=== PATIENT | female | born 1940 | race Caucasian/White ===

== ENCOUNTER 2024-06-26 23:27 | Emergency (ER) | payer MEDICARE, BC ==
[~2024-06-26] VITALS: Ht 160 cm; Wt 70.5 kg
[2024-06-26 23:37] VITALS: TEMP 98.2
[2024-06-27 00:15] VITALS: BP 178/76; PULSE 65; RESP 15; O2SAT 94
[2024-06-27] MEDS: ibuprofen tablet 400 MG TABLET PO ONE (00:35)
[2024-06-27] MEDS: acetaminophen 325mg tablet PO ONE (00:35)
== END 2024-06-27 01:16 | disposition home or self-care (01) ==
LOC: ER 23:28
DX: S90.31XA Contusion of right foot, initial encounter (principal); M85.871 Other specified disorders of bone density and structure, right ankle and foot; W18.39XA Other fall on same level, initial encounter; Y93.89 Activity, other specified; Y92.89 Other specified places as the place of occurrence of the external cause; Y99.8 Other external cause status
CPT/HCPCS: 73620; 99283; A6449

== ENCOUNTER 2024-07-21 19:19 | Emergency (ER) | payer MEDICARE, BC ==
[~2024-07-21] VITALS: Ht 160 cm; Wt 85.0 kg
[~2024-07-21 19:19] MED LIST: NO HOME MEDS
[2024-07-21 19:33] VITALS: BP 164/144; TEMP 98.2; O2SAT 97
[2024-07-21] MEDS ORDERED: [UNRECOGNIZED DRUG - CODE] PO (20:18)
[2024-07-21] MEDS ORDERED: CHOL100053 PO (20:23)
[2024-07-21] MEDS ORDERED: LISI20TA28 PO (20:23)
[2024-07-21] MEDS ORDERED: BETA300T PO (20:23)
[2024-07-21] MEDS ORDERED: AMLO-140 PO (20:25)
[2024-07-21] MEDS ORDERED: ATOR20TA PO (20:25)
[2024-07-21 21:17] VITALS: PULSE 72; RESP 18
== END 2024-07-21 21:43 | disposition home or self-care (01) ==
LOC: ER 19:21
DX: M79.604 Pain in right leg (principal); M25.561 Pain in right knee; G89.29 Other chronic pain; M79.7 Fibromyalgia; Z88.0 Allergy status to penicillin; Z88.2 Allergy status to sulfonamides; Z79.899 Other long term (current) drug therapy; Z86.718 Personal history of other venous thrombosis and embolism
CPT/HCPCS: 93970; 99284

== ENCOUNTER 2024-10-09 15:23 | Inpatient (IN) | payer MEDICARE, BC ==
[2024-10-09] VITALS (7 sets, daily range): BP systolic 121; BP diastolic 77; PULSE 60–109; RESP 23–30; TEMP 97.3; O2SAT 85–97
[~2024-10-09] VITALS: Ht 167.6 cm; Wt 72.0 kg
[~2024-10-09 15:23] MED LIST changes: +AMLO-140 PO; +ATOR20TA PO; +BETA300T PO; +CHOL100053 PO; +[UNRECOGNIZED DRUG - CODE] PO
[2024-10-09 16:18] LABS: CLARITY,URINE TURBID (Clear); COLOR,URINE RED (Yellow); UA COLLECTION TYPE FOLEY CATH
[2024-10-09 16:18] LABS: BASOPHILS % (AUTO) 0.1 % (0-1); EOSINOPHILS % (AUTO) 0 % (0-6); HEMATOCRIT 46.1 % (35.0-45.0); LYMPHOCYTES # (AUTO) 0.9 X10'3 (1.1-4.8); MEAN CORPUSCULAR HGB CONC 32.6 g/dL (33.0-36.5); MEAN CORPUSCULAR VOLUME 92.2 FL (78-98); MEAN PLATELET VOLUME 10.8 FL (7.4-10.4); MONOCYTES # (AUTO) 1.7 X10'3 (0-0.9); MONOCYTES % (AUTO) 7.9 % (2-12); NEUTROPHILS # (AUTO) 19.4 X10'3 (1.8-7.7); PLATELET COUNT 286 X10'3 (140-440); RED CELL DISTRIBUTION WIDTH 14.3 % (11.5-14.5)
[2024-10-09 16:26] LABS: APTT 23 SECONDS (22-32); PROTHROMBIN TIME 10.9 SECONDS (9.0-12.0)
[2024-10-09 16:29] LABS: RBC,URINE TNTC /HPF (0-2); WBC,URINE NONE SEEN /HPF (0-4)
[2024-10-09 16:30] LABS: BACTERIA,URINE 2+ /HPF (Neg); MUCUS STRANDS NONE SEEN /LPF (Neg); SQUAMOUS EPITHELIAL CELL,UR NONE SEEN /LPF (FEW)
[2024-10-09 16:37] LABS: ALANINE AMINOTRANSFERASE 33 U/L (12-78); ALBUMIN 3.4 G/DL (3.4-5.0); ALBUMIN/GLOBULIN RATIO 0.8 (1.1-1.5); ALKALINE PHOSPHATASE 175 IU/L (46-116); ANION GAP 19 (8-16); ASPARTATE AMINO TRANSFERASE 39 U/L (10-37); BILIRUBIN,TOTAL 1.7 MG/DL (0.1-1.0); BLOOD UREA NITROGEN 106 MG/DL (7-18); BUN/CREATININE RATIO 43.3 (10.0-20.0); CALCIUM 9.9 MG/DL (8.5-10.1); CHLORIDE 106 MMOL/L (99-107); CREATININE 2.45 MG/DL (0.40-0.90); GLUCOSE 162 MG/DL (70-104); MAGNESIUM 3.4 MG/DL (1.5-2.4); PRO BRAIN NATRIURETIC PEPTIDE 562 PG/ML (0-450); SODIUM 146 MMOL/L (135-145); TOTAL CARBON DIOXIDE 21.3 MMOL/L (24-32); TOTAL PROTEIN 7.7 G/DL (6.4-8.2); eCRCL 17 ML/MIN; eGFR 19 ML/MIN
[2024-10-09] MEDS: levoFLOXACIN-Levaquin 750MG/D5 150 ML IV ONE (16:40)
[2024-10-09 16:44] LABS: LARGE PLATELETS FEW; PLATELET ESTIMATE NORMAL
[2024-10-09] MEDS: albuterol 2.5 MG/3 ML nebule CONTNEB ONE (17:00)
[2024-10-09] MEDS: sodium polystyrene sulfonate 15gm/60ml oral suspension PO ONE (17:07)
[2024-10-09] MEDS: ringers solution, lacted 1,000 ML IV ONE (17:15)
[2024-10-09] MEDS: sodium polystyrene sulfonate 15gm/60ml oral suspension PR ONE (17:16)
[2024-10-09] MEDS: insulin regular, human 10 units/0.1 ml syringe IV ONE (17:21)
[2024-10-09] MEDS: dextrose 50%-water 50ml dispensing syringe IV ONE (17:22)
[2024-10-09 19:08] LABS: BASOPHILS % (AUTO) 0.1 % (0-1); EOSINOPHILS % (AUTO) 0 % (0-6); HEMATOCRIT 35.1 % (35.0-45.0); LYMPHOCYTES # (AUTO) 1.8 X10'3 (1.1-4.8); LYMPHOCYTES % (AUTO) 8.5 % (21-51); MEAN CORPUSCULAR HEMOGLOBIN 30.3 PG (27.0-31.0); MEAN CORPUSCULAR HGB CONC 31.4 g/dL (33.0-36.5); MEAN CORPUSCULAR VOLUME 96.5 FL (78-98); MEAN PLATELET VOLUME 10.7 FL (7.4-10.4); MONOCYTES # (AUTO) 0.9 X10'3 (0-0.9); MONOCYTES % (AUTO) 4.4 % (2-12); NEUTROPHILS # (AUTO) 18.2 X10'3 (1.8-7.7); PLATELET COUNT 191 X10'3 (140-440); RED BLOOD COUNT 3.63 X10'6 (4.20-5.60); RED CELL DISTRIBUTION WIDTH 15.2 % (11.5-14.5); WHITE BLOOD COUNT 20.9 X10'3 (4.5-11.0)
[2024-10-09] MEDS: normal saline 1000ML IV soln IV ONE (19:26)
[2024-10-09] MEDS: sodium bicarbonate (8.4%) 1 mEq/ml syringe IV ONE (19:27)
[2024-10-09 19:31] LABS: ABG HCO3 11.3 mmol/L (21.0-28.0); ABG PCO2 (T) 27.2 mmHg (32.0-45.0); ABG PH (T) 7.232 (7.350-7.450); ABG PO2 (T) 322.2 mmHg (83.0-108.0); ALLEN'S TEST Modified; FCOHb 0.1 % (0.5-1.5); FMetHb 0.3 % (0.0-1.5); FO2Hb 98.6 % (94.0-98.0); MODE bipap; PATIENT TEMPERATURE 36.2; RESPIRATORY RATE 14 b/min; TOTAL HEMOGLOBIN 10.8 G/dl (12.0-16.0)
[2024-10-09] MEDS: NORepinephrine 8mg/ 250ml NS 250 ML IV SCH (19:31)
[2024-10-09 19:55] LABS: ALANINE AMINOTRANSFERASE 68 U/L (12-78); ALBUMIN/GLOBULIN RATIO 0.7 (1.1-1.5); ALKALINE PHOSPHATASE 120 IU/L (46-116); ANION GAP 19 (8-16); ASPARTATE AMINO TRANSFERASE 90 U/L (10-37); BLOOD UREA NITROGEN 102 MG/DL (7-18); BUN/CREATININE RATIO 38.6 (10.0-20.0); CHLORIDE 115 MMOL/L (99-107); CREATINE KINASE 128 U/L (26-192); CREATININE 2.64 MG/DL (0.40-0.90); GLUCOSE 200 MG/DL (70-104); MAGNESIUM 2.9 MG/DL (1.5-2.4); POTASSIUM 4.3 MMOL/L (3.5-5.1); SODIUM 152 MMOL/L (135-145); TOTAL CARBON DIOXIDE 18.2 MMOL/L (24-32); TOTAL PROTEIN 4.8 G/DL (6.4-8.2); eCRCL 16 ML/MIN; eGFR 17 ML/MIN
[2024-10-09 20:02] LABS: CALCIUM 12.5 MG/DL (8.5-10.1)
[2024-10-09] MEDS: normal saline 1000ML IV soln IVB ONE (20:04)
[2024-10-09] MEDS: normal saline 500ml IV soln 500 ML IV ONE (22:49)
[2024-10-09] MEDS ORDERED: magnesium hydroxide 30ml (MOM) UD suspension PO PRN (23:30)
[2024-10-09] MEDS ORDERED: acetaminophen 325mg tablet PO PRN (23:30)
[2024-10-09] MEDS ORDERED: mag hydrox/Alum hydrox/simeth 30ml oral suspension PO PRN (23:30)
[2024-10-09] MEDS ORDERED: ondansetron/PF 4mg/2ml inj IV PRN (23:30)
[2024-10-09] MEDS: diazepam inj 5 MG/ML inj. IV ONE (23:55)
[2024-10-09] MEDS: morphine 4 MG/ML inj SYRINge IV ONE (23:55)
[2024-10-10] MEDS: scopolamine 1MG/72H patch 1 PATCH PATCH.TD.3 TD SCH (00:24)
[2024-10-10] MEDS: morphine 2 MG/ML inj. syringe IV PRN (00:30)
[2024-10-10] MEDS: morphine 4 MG/ML inj SYRINge IV PRN (00:41)
[2024-10-10 01:06] VITALS: PULSE 0; RESP 0
[2024-10-10] MEDS ORDERED: docusate sod 100mg capsule PO SCH (08:00)
[2024-10-10] MEDS ORDERED: calcium chloride 100 MG/1 ML inj IV ONE (08:00)
== END 2024-10-10 04:30 | DRG 871 ==
LOC: ER 15:24 → ED HOLD 23:38
PROVIDERS: ADMIT Surgery Surgical Critical Care; ATTEND Surgery Surgical Critical Care
DX: A41.9 Sepsis, unspecified organism (principal); G93.41 Metabolic encephalopathy; J96.01 Acute respiratory failure with hypoxia; R65.21 Severe sepsis with septic shock; E87.20 Acidosis, unspecified; N17.9 Acute kidney failure, unspecified; M62.82 Rhabdomyolysis; M54.9 Dorsalgia, unspecified; I10 Essential (primary) hypertension; Z66 Do not resuscitate; R14.0 Abdominal distension (gaseous); R31.9 Hematuria, unspecified; E87.5 Hyperkalemia; G89.4 Chronic pain syndrome; Z51.5 Encounter for palliative care; Z79.899 Other long term (current) drug therapy; Z88.2 Allergy status to sulfonamides; Z88.0 Allergy status to penicillin; Z90.49 Acquired absence of other specified parts of digestive tract
CPT/HCPCS: 36415; 36600; 71045; 74176; 80053; 81001; 82550; 82803; 82948; 83605; 83735; 83874; 83880; 84145; 84484; 85008; 85018; 85025; 85610; 85730; 87040; 93005; 94640; 94760; 96365; 96367; 99291; A4314; G0378; J1815; J1956; J2270; J3360; J3490; J7030; J7040; J7120